=== PATIENT | male | born 1995 | race African-American/Black ===

== ENCOUNTER 2024-05-11 16:22 | Emergency (ER) | payer OTHER ==
[~2024-05-11] VITALS: Ht 182.9 cm; Wt 100.0 kg
[2024-05-11 16:34] VITALS: TEMP 98
[2024-05-11] MEDS: PERTUSS(ACELL),DIPH,TET/PF 0.5 ML SYRINGE [ADULT] IM. ONE (17:04)
[2024-05-11] MEDS: LIDOCAINE 1% 10 ML VIAL SQ ONE (17:04)
[2024-05-11] MEDS: BACITRACIN 0.9 GM PACKET OINTMENT TP ONE (17:42)
[2024-05-11 17:51] VITALS: BP 123/70; PULSE 64; RESP 18
== END 2024-05-11 17:52 | disposition home or self-care (01) ==
LOC: EMS 16:33
DX: S61.011A Laceration without foreign body of right thumb without damage to nail, initial encounter (principal); W26.8XXA Contact with other sharp object(s), not elsewhere classified, initial encounter; Y93.89 Activity, other specified; Y92.89 Other specified places as the place of occurrence of the external cause; Y99.8 Other external cause status
CPT/HCPCS: 99283; 90715; 90471; 12002; J3490

== ENCOUNTER 2024-05-21 14:23 | Emergency (ER) | payer OTHER ==
[~2024-05-21] VITALS: Ht 205.7 cm; Wt 118.2 kg
[2024-05-21 14:32] VITALS: BP 124/78; PULSE 72; RESP 16; TEMP 97.9
== END 2024-05-21 15:15 | disposition home or self-care (01) ==
LOC: EMS 14:23
DX: S61.011D Laceration without foreign body of right thumb without damage to nail, subsequent encounter (principal); Z48.02 Encounter for removal of sutures; W45.8XXA Other foreign body or object entering through skin, initial encounter; Y93.89 Activity, other specified; Y92.89 Other specified places as the place of occurrence of the external cause; Y99.8 Other external cause status
CPT/HCPCS: 99281; Z7502